=== PATIENT | male | born 1950 | race Caucasian/White ===

== ENCOUNTER 2017-01-31 08:44 | Day surgery (SDC) | payer BC ==
[~2017-01-31 08:44] MED LIST: RINGERS SOLUTION,LACTATED 1,000 ML IV PRN
[2017-01-31] MEDS ORDERED: RINGERS SOLUTION,LACTATED 1,000 ML IV ONE (09:21)
[2017-01-31] MEDS ORDERED: RINGERS SOLUTION,LACTATED 1,000 ML IV PRN (10:35)
[2017-01-31 13:17] VITALS: BP 117/76
--- NOTE | 2017-01-31 17:37 | OR ---
Operative Report - Dictated Report Narrative: OPERATIVE REPORT DATE OF OPERATION: 01/31/2017 PREOPERATIVE DIAGNOSIS: No recent dedicated colon studies. Possible history of colon polyps POSTOPERATIVE DIAGNOSIS: 4 mm colon polyp at 90 cm (pathology pending) OPERATION: Colonoscopy with hot biopsy forceps polypectomy at 90 cm SURGEON: Aakash Recio MD ANESTHESIA: ASIA Antunez CRNA INDICATIONS FOR PROCEDURE: The patient is a 66-year-old male referred by A Humera ZAZUETA. His last colonoscopy was in 2006. He states he has had "polyps" on colonoscopies done before then. There is no family history of colon cancer. He is currently asymptomatic. FINDINGS: 4 mm area of possible polypoid change at 90 cm otherwise normal colonoscopy to the cecum NARRATIVE OF PROCEDURE: The patient was identified in the holding area, and prior to the administration of anesthetic, a multidisciplinary timeout was observed. With the patient in the left lateral position and after the administration of intravenous sedation, the perineum was inspected. There was no evidence of pilonidal disease or skin breakdown. The external appearance of the anus was normal. Sphincter tone was good. The flexible fiberoptic colonoscope was inserted into the rectum which was insufflated with air. The rectal mucosa and submucosal vascular pattern appeared normal, the prep was seen to be complete. The scope was advanced through the sigmoid colon, up the descending colon, and around the splenic flexure where the triangular haustral architecture of the transverse colon was seen. The scope was advanced across the transverse colon to the hepatic flexure. At this juncture a 4 mm area of possible polypoid change was encountered. This was probed to ensure that it was not a diverticulum, and then it was biopsied and thoroughly destroyed with electrocautery. The site was seen to be complete and hemostatic. The scope was then advanced around the hepatic flexure to the cecum, where the confluence of tenia and the ileocecal valve were identified. The mucosa at this level appeared normal. The scope was then slowly withdrawn in a circular fashion so that all aspects of colonic mucosa were inspected. The colon was slightly capacious in character but normal in course. The haustral architecture appeared well preserved throughout with no evidence of external compression. The mucosa and submucosal vascular pattern appeared normal, specifically there was no gross evidence to suggest colitis or inflammatory bowel disease and no AV malformations were seen. No diverticulosis was demonstrated. No additional polyps were encountered. The scope was gradually withdrawn to the level of the rectum. As much insufflated air as possible was removed. The scope was withdrawn from the patient and the procedure terminated. The patient tolerated the anesthetic and procedure well without complication and was transferred back to the ambulatory surgery area awake and in stable condition. The patient remained stable throughout a period of postoperative observation. He denied abdominal discomfort, was able to tolerate by mouth intake, and was up without assistance. I shared the operative findings with the patient and he was given copies of the photographs which appear in the medical record. He was discharged home with instructions not to engage in hazardous activity today, but may resume normal activity tomorrow, and advance diet as tolerated. He is to continue those medications as listed in the history and physical exam. I made arrangements to contact him with the biopsy reports and will make additional recommendations for treatment and follow-up based upon those results. Reviewed and electronically signed
== END 2017-01-31 08:45 | disposition home or self-care (01) ==
LOC: AMB 08:44
PROVIDERS: ATTEND Surgery
PROC: 0DBL8ZX Excision of Transverse Colon, Via Natural or Artificial Opening Endoscopic, Diagnostic (ICD-10-PCS; principal; 2017-01-31 10:00)
DX: Z12.11 Encounter for screening for malignant neoplasm of colon (principal); D12.3 Benign neoplasm of transverse colon; I10 Essential (primary) hypertension; E78.5 Hyperlipidemia, unspecified; K21.9 Gastro-esophageal reflux disease without esophagitis; Z87.891 Personal history of nicotine dependence; Z68.32 Body mass index [BMI] 32.0-32.9, adult

== ENCOUNTER 2017-02-10 06:42 | Day surgery (SDC) | payer BC ==
[~2017-02-10 06:42] MED LIST changes: +CLINDAMYCIN PHOSPHATE 900 MG in DEXTROSE 5 % IN WATER 100 ML IV PRN
[2017-02-10] MEDS ORDERED: BUPIVACAINE HCL 50 ML VIAL IJ ONE ×4 (08:14→08:30)
--- NOTE | 2017-02-10 08:50 | OR ---
Operative Report - Dictated Report Narrative: Date: 02/10/2017 Physician: Singh Benítez M.D. Rehab Specialist: None Preoperative diagnosis: Right Cubital tunnel syndrome Postoperative diagnosis: Right Cubital tunnel syndrome Procedure: Right ulnar nerve decompression at the cubital tunnel Anesthesia: General Plus local Complications: None Estimated blood loss: Minimal Tourniquet time: 18 Minutes at 250 mmHg Specimens: None Retained implants: None Drains: None Indications: Laura Is a 66 year-old male who has been followed in my clinic with complaints of cubital tunnel syndrome. Physical exam as well as diagnostic testing showed compression of the ulnar nerve compatible with cubital tunnel syndrome. Conservative measures have failed including but not limited to activity modification, medications, and passage of time. The risks, benefits, and alternatives were discussed in clinic. The risks being bleeding, infection, nerve, tendon, blood vessel injury, persistent pain, wound complications, weakness, palm pain, need for additional procedures, and persistent symptoms. Consent was obtained in the clinic. Procedure: After marking the correct extremity in the preoperative holding area, a timeout was performed in the operating room. IV antibiotics consisting of 900 mg of clindamycin was administered prior to the procedure. The right upper extremity was then prepped and draped in usual sterile fashion. A well-padded sterile tourniquet was applied to the operative upper arm. The arm was exsanguinated and the tourniquet was inflated to 250 mmHg. 0.5% Marcaine without epinephrine was infused into the projected incision site at the location of his previous surgical incision over the medial elbow. Using loupe magnification, a longitudinal incision centered over the cubital tunnel was made approximately 7 centimeters in length. Blunt dissection was carried down to the subcutaneous tissues using bipolar cautery for hemostasis. Care was taken to protect the identified underlying cutaneous nerves. The ulnar nerve was identified as it passed through the medial intermuscular septum along the distal triceps. A release of the canal in this area as the ulnar nerve passed anterior to posterior was performed in order to decompress the nerve at this site. The nerve was dissected releasing the overlying soft tissues while maintaining the vascularity of the nerve down to the area of the medial epicondyle and Johnson' s ligament. The nerve was completely decompressed as it passed posterior to the medial condyle and was followed into the flexor carpi ulnaris. The deep fascia of the flexor carpi ulnaris muscle was released in order to decompress the nerve at this site. The first branch of the ulnar nerve was protected as well as any identified recurrent branches. The elbow was placed through range of motion and it was noted that the nerve was not unstable nor did it appear to be under tension as it passed behind the medial epicondyle. For this reason it was not felt that a transposition was necessary. Once it was felt that we had completely released the compressive structures on the ulnar nerve, the wounds were thoroughly irrigated and the tourniquet was deflated. Hemostasis was obtained using pressure and bipolar cautery. Once adequate hemostasis was achieved, additional local anesthetic was placed in the skin edges, and the subcutaneous tissue was closed with interrupted Vicryl. The skin was closed with 4-0 nylon and sterile dressings consisting of Xeroform, 4 x 4, soft roll, and a forearm Duke wrap was applied. All sponge, needle, blade, and instrument counts were correct prior to closing the wounds. The patient was awoken and transferred to the postanesthesia care unit in stable condition.
[2017-02-10 10:07] VITALS: BP 132/65
== END 2017-02-10 06:43 | disposition home or self-care (01) ==
LOC: AMB 06:42
PROVIDERS: ATTEND Orthopaedic Surgery
PROC: 01N40ZZ Release Ulnar Nerve, Open Approach (ICD-10-PCS; principal; 2017-02-10 08:00)
DX: G56.21 Lesion of ulnar nerve, right upper limb (principal); I10 Essential (primary) hypertension; E78.5 Hyperlipidemia, unspecified; K21.9 Gastro-esophageal reflux disease without esophagitis; Z87.891 Personal history of nicotine dependence; Z68.32 Body mass index [BMI] 32.0-32.9, adult